=== PATIENT | female | born 1945 | race Caucasian/White ===

== ENCOUNTER 2024-04-14 17:11 | Inpatient (IN) | payer MEDICARE, MEDICAID ==
[~2024-04-14] VITALS: Ht 152.4 cm; Wt 50.3 kg
[~2024-04-14 17:11] MED LIST: AMLO5TAB88 PO; CHLO25TA2 PO; LEVO25TA7 PO; QUET25TA PO
[2024-04-14] MEDS: OLANZAPINE 10 MG/VIAL IM ONE ×2 (18:02→18:19)
[2024-04-14 19:14] LABS: BASOPHILS % 0.4 % (0.0-2.0); EOSINOPHILS % 1.9 % (0.0-5.0); HEMATOCRIT. 31.8 % (36.0-48.0); HEMOGLOBIN. 10.4 g/dL (12.0-16.0); LYMPHOCYTES % 12.2 % (20.0-50.0); MEAN CORPUSCULAR HEMOGLOBIN 29.8 pg (28.0-32.0); MEAN CORPUSCULAR HGB CONC 32.8 g/dL (31.0-37.0); MEAN CORPUSCULAR VOLUME 90.7 fL (81.0-99.0); MEAN PLATELET VOLUME 8.4 fl (7.4-10.4); MONOCYTES % 4.5 % (2.0-8.0); PLATELET 321 x1000/uL (130-400); RED BLOOD CELL COUNT 3.51 mill/uL (4.2-5.4); RED CELL DISTRIBUTION WIDTH 14.1 % (11.6-14.6); WHITE BLOOD COUNT 9.2 x1000/uL (4.5-11.0)
[2024-04-14 19:22] LABS: CHLORIDE 103 mEq/L (98-107); POTASSIUM 3.5 mEq/L (3.5-5.1); SODIUM 138 mEq/L (136-145)
[2024-04-14 19:23] LABS: CALCIUM 9.2 mg/dL (8.7-10.4); CARBON DIOXIDE 27 mEq/L (21-32)
[2024-04-14 19:28] LABS: CREATININE 1.2 mg/dL (0.6-1.0); GLUCOSE 305 mg/dL (70-105); UREA NITROGEN BLOOD 25 mg/dL (9-23)
[2024-04-14 19:30] LABS: ACETAMINOPHEN < 2 ug/mL (10-30); TROPONIN I HIGH SENSITIVITY 11 ng/L (3.0-34)
[2024-04-14 19:37] LABS: ETHANOL BLOOD < 10 mg/dL (<10)
[2024-04-14 20:31] VITALS: O2SAT 99
[2024-04-14] MEDS: MIDAZOLAM HCL 2 MG/2 ML VIAL IM ONE (20:31)
[2024-04-14 20:36] LABS: CLARITY URINE CLEAR (CLEAR); COLOR URINE YELLOW (YELLOW); GLUCOSE URINE NEGATIVE (NEGATIVE); KETONES URINE NEGATIVE (NEGATIVE); LEUKOCYTE ESTERASE URINE NEGATIVE (NEGATIVE); NITRITE URINE NEGATIVE (NEGATIVE); OCCULT BLOOD URINE NEGATIVE (NEGATIVE); PROTEIN URINE NEGATIVE (NEGATIVE); SPECIFIC GRAVITY URINE 1.006 (1.005-1.030)
[2024-04-14 20:46] LABS: *AMPHETAMINES SCREEN URINE NEGATIVE (NEGATIVE); *BARBITURATES SCREEN URINE NEGATIVE (NEGATIVE); *BENZODIAZEPINES SCREEN URINE NEGATIVE (NEGATIVE); *COCAINE SCREEN URINE NEGATIVE (NEGATIVE); CANNABINOID URINE SCREEN NEGATIVE (NEGATIVE); ECSTASY MDMA SCREEN URINE NEGATIVE (NEGATIVE); METHADONE URINE SCREEN NEGATIVE (NEGATIVE); OPIATES URINE SCREEN NEGATIVE (NEGATIVE); PHENCYCLIDINE URINE SCREEN NEGATIVE (NEGATIVE)
[2024-04-14 21:50] LABS: TROPONIN I HIGH SENSITIVITY 19 ng/L (3.0-34)
[2024-04-14] MEDS ORDERED: ACETAMINOPHEN 325MG TABLET PO PRN ×2 (23:45)
[2024-04-14] MEDS ORDERED: DEXTROSE 50% WATER 50ML SYRINGE IV PRN (23:45)
[2024-04-15] MEDS ORDERED: HALOPERIDOL LACTATE 5MG/ML VIAL IM PRN (00:15)
[2024-04-15 04:00] VITALS: BP 141/55; PULSE 69; RESP 18; TEMP 36.50292; O2SAT 94
[2024-04-15] MEDS: SODIUM CHLORIDE 0.9% 1,000 ML IV SCH (06:30)
[2024-04-15] MEDS: LEVOTHYROXINE SODIUM 25MCG TABLET PO SCH (06:53)
[2024-04-15] MEDS: BLOOD SUGAR DIAGNOSTIC STRIP TEST SCH (06:59)
[2024-04-15 07:11] LABS: CALCIUM 9.2 mg/dL (8.7-10.4); CARBON DIOXIDE 29 mEq/L (21-32); CHLORIDE 111 mEq/L (98-107); POTASSIUM 3.7 mEq/L (3.5-5.1); SODIUM 145 mEq/L (136-145)
[2024-04-15 07:15] LABS: ALANINE AMINOTRANSFERASE 12 IU/L (10-49); ALBUMIN 3.6 g/dL (3.2-4.8); ASPARTATE AMINOTRANSFERASE 21 IU/L (<34); BILIRUBIN TOTAL 0.4 mg/dL (0.1-1.0); PROTEIN TOTAL 7.6 g/dL (6.0-8.3)
[2024-04-15 07:17] LABS: CREATININE 1.1 mg/dL (0.6-1.0); GLUCOSE 94 mg/dL (70-105); TRIGLYCERIDE 65 mg/dL (0-150); UREA NITROGEN BLOOD 20 mg/dL (9-23)
[2024-04-15 07:18] LABS: CREATINE KINASE 139 IU/L (34-145); LDL CHOLESTEROL 98 mg/dL (5-100)
[2024-04-15 07:19] LABS: BILIRUBIN DIRECT 0.1 mg/dL (<=3.0); CHOLESTEROL 143 mg/dL (<200); HDL CHOLESTEROL 36 mg/dL (>65); PHOSPHORUS 3.3 mg/dL (2.5-4.9); T4 FREE 1.04 ng/dL (0.89-1.76); THYROID STIMULATING HORMONE 6.46 uIU/mL (0.55-4.78)
[2024-04-15 07:40] LABS: BASOPHILS % 0.7 % (0.0-2.0); EOSINOPHILS % 4.6 % (0.0-5.0); HEMATOCRIT. 31.6 % (36.0-48.0); HEMOGLOBIN. 10.3 g/dL (12.0-16.0); LYMPHOCYTES % 24.6 % (20.0-50.0); MEAN CORPUSCULAR HEMOGLOBIN 29.6 pg (28.0-32.0); MEAN CORPUSCULAR HGB CONC 32.5 g/dL (31.0-37.0); MEAN CORPUSCULAR VOLUME 91.1 fL (81.0-99.0); MEAN PLATELET VOLUME 8.3 fl (7.4-10.4); NEUTROPHILS % 64.1 % (40.0-76.0); PLATELET 321 x1000/uL (130-400); RED BLOOD CELL COUNT 3.47 mill/uL (4.2-5.4); RED CELL DISTRIBUTION WIDTH 14.3 % (11.6-14.6); WHITE BLOOD COUNT 7.5 x1000/uL (4.5-11.0)
[2024-04-15] MEDS: QUETIAPINE FUMARATE 25MG TABLET PO SCH ×2 (09:36→21:18)
[2024-04-15] MEDS: AMLODIPINE 5MG TABLET PO SCH (09:39)
[2024-04-15] MEDS: INSULIN LISPRO 100 UNITS/ML SUBCUT SCH (10:42)
[2024-04-15 17:04] VITALS: BP 176/68; PULSE 87; RESP 18; TEMP 35.9176
[2024-04-15 20:00] VITALS: BP 169/94; PULSE 104; RESP 19; TEMP 36.3918; O2SAT 93
[2024-04-15] MEDS: DIVALPROEX SODIUM 250MG DR TABLET PO SCH (21:19)
[2024-04-16] VITALS: BP 190/98; PULSE 97; RESP 19; TEMP 35.89176; O2SAT 98
[2024-04-16 04:00] VITALS: BP 101/59; PULSE 80; RESP 19; TEMP 36.16956; O2SAT 96
[2024-04-16 08:00] VITALS: BP 139/76; PULSE 79; RESP 18; TEMP 36.28068; O2SAT 95
[2024-04-16 08:45] LABS: POTASSIUM 3.8 mEq/L (3.5-5.1)
[2024-04-16 08:50] LABS: CREATININE 1.1 mg/dL (0.6-1.0)
[2024-04-16 08:59] LABS: HEMATOCRIT 30.7 % (36.0-48.0); HEMOGLOBIN 10.2 g/dL (12.0-16.0); MEAN CORPUSCULAR HEMOGLOBIN 29.9 pg (28.0-32.0); MEAN CORPUSCULAR HGB CONC 33.3 g/dL (31.0-37.0); MEAN CORPUSCULAR VOLUME 89.9 fL (81.0-99.0); PLATELET 324 x1000/uL (130-400); RED BLOOD CELL COUNT 3.41 mill/uL (4.2-5.4); RED CELL DISTRIBUTION WIDTH 14.1 % (11.6-14.6); WHITE BLOOD COUNT 7.1 x1000/uL (4.5-11.0)
[2024-04-16] MEDS: QUETIAPINE FUMARATE 25MG TABLET PO SCH (09:20)
[2024-04-16 12:00] VITALS: BP 128/86; PULSE 92; RESP 18; TEMP 36.22512; O2SAT 96
[2024-04-16 16:00] VITALS: BP 130/82; PULSE 80; RESP 18; TEMP 36.28068; O2SAT 96
[2024-04-16 20:00] VITALS: BP 141/86; PULSE 91; RESP 20; TEMP 36.72516; O2SAT 99
[2024-04-17] VITALS: BP 140/80; PULSE 85; RESP 20; TEMP 36.44736; O2SAT 99
[2024-04-17 04:00] VITALS: BP 136/75; PULSE 82; RESP 20; TEMP 36.28068; O2SAT 99
[2024-04-17 08:00] VITALS: BP 153/84; PULSE 93; RESP 18; TEMP 36.72516; O2SAT 97
[2024-04-17 08:29] LABS: HEMATOCRIT 33.5 % (36.0-48.0); HEMOGLOBIN 10.9 g/dL (12.0-16.0); MEAN CORPUSCULAR HEMOGLOBIN 29.5 pg (28.0-32.0); MEAN CORPUSCULAR HGB CONC 32.7 g/dL (31.0-37.0); MEAN CORPUSCULAR VOLUME 90.2 fL (81.0-99.0); PLATELET 332 x1000/uL (130-400); RED BLOOD CELL COUNT 3.71 mill/uL (4.2-5.4); RED CELL DISTRIBUTION WIDTH 14.5 % (11.6-14.6); WHITE BLOOD COUNT 7.9 x1000/uL (4.5-11.0)
[2024-04-17 08:37] LABS: POTASSIUM 4.4 mEq/L (3.5-5.1)
[2024-04-17 08:38] LABS: CALCIUM 9.4 mg/dL (8.7-10.4)
[2024-04-17 08:43] LABS: CREATININE 1.1 mg/dL (0.6-1.0)
[2024-04-17 12:00] VITALS: BP 132/87; PULSE 124; RESP 18; TEMP 36.28068; O2SAT 98
[2024-04-17 16:00] VITALS: BP 139/80; PULSE 94; RESP 18; TEMP 36.28068; O2SAT 98
[2024-04-17 20:00] VITALS: BP 129/73; PULSE 107; RESP 19; TEMP 36.05844; O2SAT 98
[2024-04-18] VITALS: BP 118/64; PULSE 103; RESP 18; TEMP 36.50292; O2SAT 96
[2024-04-18 04:00] VITALS: BP 122/80; PULSE 69; RESP 18; TEMP 35.89176; TEMP 36.22512; O2SAT 96; O2SAT 97
[2024-04-18 08:00] VITALS: BP 139/82; PULSE 106; RESP 18; TEMP 36.6696; O2SAT 97
[2024-04-18 12:00] VITALS: BP 138/87; PULSE 104; RESP 18; TEMP 36.3918; O2SAT 98
[2024-04-18] MEDS ORDERED: QUET25TA PO (14:30)
[2024-04-18 16:00] VITALS: BP 137/78; PULSE 103; RESP 20; TEMP 36.3918; TEMP 36.39180; O2SAT 98
== END 2024-04-18 17:45 | disposition home or self-care (01) | DRG 52 ==
LOC: ER 17:11 → 5WST 21:24 → EDBEDREQ 21:30 → EDBEDREQTM 21:30 → 7EST 04-15 16:44
PROVIDERS: ADMIT Preventive Medicine Clinical Informatics; ATTEND Preventive Medicine Clinical Informatics
DX: G92.8 Other toxic encephalopathy (principal); N17.9 Acute kidney failure, unspecified; D64.9 Anemia, unspecified; E03.9 Hypothyroidism, unspecified; E11.22 Type 2 diabetes mellitus with diabetic chronic kidney disease; F31.9 Bipolar disorder, unspecified; I12.9 Hypertensive chronic kidney disease with stage 1 through stage 4 chronic kidney disease, or unspecified chronic kidney disease; Z20.822 Contact with and (suspected) exposure to COVID-19; M19.071 Primary osteoarthritis, right ankle and foot; N18.9 Chronic kidney disease, unspecified; I49.3 Ventricular premature depolarization; Z79.899 Other long term (current) drug therapy; Z79.4 Long term (current) use of insulin
CPT/HCPCS: 36415; 71045; 73610; 80048; 80061; 80076; 80165; 80305; 80307; 80320; 80329; 81003; 82550; 82962; 83036; 83735; 84100; 84439; 84443; 84484; 85025; 85027; 87426; 93005; 93971; 99285; J2250; J3490; J7030; G0480

== ENCOUNTER 2024-08-02 23:52 | Emergency (ER) | payer MEDICARE, MEDICAID ==
[~2024-08-02] VITALS: Ht 154.9 cm; Wt 58.0 kg
[2024-08-03 00:10] VITALS: O2SAT 99
[2024-08-03] MEDS ORDERED: MIDAZOLAM HCL 2 MG/2 ML VIAL IV ONE (01:00)
[2024-08-03 01:38] LABS: BASOPHILS % 0.4 % (0.0-2.0); EOSINOPHILS % 1.3 % (0.0-5.0); HEMATOCRIT. 33.6 % (36.0-48.0); HEMOGLOBIN. 11.5 g/dL (12.0-16.0); LYMPHOCYTES % 12.3 % (20.0-50.0); MEAN CORPUSCULAR HEMOGLOBIN 30.5 pg (28.0-32.0); MEAN CORPUSCULAR HGB CONC 34.2 g/dL (31.0-37.0); MEAN PLATELET VOLUME 8.3 fl (7.4-10.4); MONOCYTES % 4.9 % (2.0-8.0); NEUTROPHILS % 81.1 % (40.0-76.0); PLATELET 208 x1000/uL (130-400); RED BLOOD CELL COUNT 3.78 mill/uL (4.2-5.4); RED CELL DISTRIBUTION WIDTH 15.3 % (11.6-14.6); WHITE BLOOD COUNT 8.7 x1000/uL (4.5-11.0)
[2024-08-03] MEDS: MIDAZOLAM HCL 2 MG/2 ML VIAL IM ONE (01:53)
[2024-08-03 02:03] LABS: CARBON DIOXIDE 28 mEq/L (21-32); CHLORIDE 107 mEq/L (98-107); SODIUM 143 mEq/L (136-145)
[2024-08-03 02:04] LABS: CALCIUM 9.8 mg/dL (8.7-10.4)
[2024-08-03 02:08] LABS: CREATININE 1.3 mg/dL (0.6-1.0)
[2024-08-03 02:09] LABS: GLUCOSE 190 mg/dL (70-105); UREA NITROGEN BLOOD 29 mg/dL (9-23)
[2024-08-03 02:10] LABS: ACETAMINOPHEN < 2 ug/mL (10-30)
[2024-08-03 02:17] LABS: ETHANOL BLOOD < 10 mg/dL (<10)
[2024-08-03] MEDS: HALOPERIDOL LACTATE 5MG/ML VIAL IM ONE (03:30)
[2024-08-03] MEDS: LORAZEPAM 2MG/ML INJ IM ONE (03:30)
[2024-08-03 03:55] LABS: CLARITY URINE CLEAR (CLEAR); COLOR URINE YELLOW (YELLOW); GLUCOSE URINE NEGATIVE (NEGATIVE); KETONES URINE NEGATIVE (NEGATIVE); LEUKOCYTE ESTERASE URINE NEGATIVE (NEGATIVE); NITRITE URINE POSITIVE (NEGATIVE); OCCULT BLOOD URINE TRACE (NEGATIVE); PH URINE 6.5 (4.5-8.0); PROTEIN URINE 1+ (NEGATIVE); UROBILINOGEN URINE 0.2 E.U./dL (0.2-1.0)
[2024-08-03 04:07] LABS: *AMPHETAMINES SCREEN URINE NEGATIVE (NEGATIVE); *BARBITURATES SCREEN URINE NEGATIVE (NEGATIVE); *BENZODIAZEPINES SCREEN URINE NEGATIVE (NEGATIVE); *COCAINE SCREEN URINE NEGATIVE (NEGATIVE); CANNABINOID URINE SCREEN NEGATIVE (NEGATIVE); ECSTASY MDMA SCREEN URINE NEGATIVE (NEGATIVE); METHADONE URINE SCREEN NEGATIVE (NEGATIVE); OPIATES URINE SCREEN NEGATIVE (NEGATIVE); PHENCYCLIDINE URINE SCREEN NEGATIVE (NEGATIVE)
[2024-08-03 05:10] LABS: SQUAMOUS EPITHELIAL CELL URINE FEW /lpf (RARE/1+)
[2024-08-03 05:15] LABS: AMORPHOUS SEDIMENT URINE 1+ /lpf; BACTERIA URINE NONE SEEN
[2024-08-04] MEDS: CLONIDINE 0.2MG TABLET PO ONE (15:00)
[2024-08-04] MEDS: QUETIAPINE FUMARATE 25MG TABLET PO SCH (21:19)
[2024-08-05] MEDS ORDERED: CLONIDINE 0.2MG TABLET PO ONE (06:45)
[2024-08-05] MEDS: CLONIDINE 0.1MG TABLET PO NR (06:48)
[2024-08-05] MEDS: CLONIDINE 0.1MG TABLET PO ONE ×2 (15:52→23:15)
[2024-08-05] MEDS: AMLODIPINE 5MG TABLET PO ONE (23:16)
[2024-08-05] MEDS: OLANZAPINE 10 MG/VIAL IM ONE (23:17)
[2024-08-06] MEDS: AMLODIPINE 5MG TABLET PO SCH (09:00)
[2024-08-06 12:44] VITALS: BP 135/86; PULSE 86; RESP 20; TEMP 36.7; O2SAT 99
== END 2024-08-06 13:01 ==
LOC: ER 08-03 00:02
DX: F20.9 Schizophrenia, unspecified (principal); R45.6 Violent behavior; F31.9 Bipolar disorder, unspecified; I10 Essential (primary) hypertension; I49.1 Atrial premature depolarization; I67.82 Cerebral ischemia; Z95.0 Presence of cardiac pacemaker; Z79.899 Other long term (current) drug therapy; Z20.822 Contact with and (suspected) exposure to COVID-19
CPT/HCPCS: 87426; 80305; 80048; 81003; 80307; 80329; 80320; 85025; 36415; 70450; 93005; 96372; 99285; J1630; J2060; J2250; Z7610 ×2; J3490; A4606; G0480